=== PATIENT | male | born 1985 | race African-American/Black ===

== ENCOUNTER 2022-07-28 19:05 | Emergency (ER) | payer OTHER ==
[~2022-07-28] VITALS: Ht 193 cm; Wt 106.6 kg
[2022-07-28] MEDS ORDERED: QUET400T PO (19:10)
[2022-07-28] MEDS ORDERED: QUET200T PO (19:10)
--- NOTE | 2022-07-28 19:15 | NUR ---
PATIENT WALKED INTO ER BIB [facility] FOR C/O AUDITORY HALLUCINATION. PATIENT STATES THE VOICES AT TELLING HIM TO RUN INTO TRAFFIC. PATIENT STATES THAT HE HAS HAD SUICIDAL THOUGHTS FOR THE PAST THREE DAYS
[2022-07-28] MEDS ORDERED: OLANZAPINE 5 MG TABLET PO ONE (19:30)
[2022-07-28 19:41] LABS: HEMATOCRIT 39.2 % (36.7-47.1); MEAN CORPUSCULAR HEMOGLOBIN 29.9 uug (23.8-33.4); MEAN CORPUSCULAR VOLUME 87.1 fL (73.0-96.2); PLATELET COUNT (AUTO) 320 K/uL (152-348)
[2022-07-28] MEDS ORDERED: OLANZAPINE 5 MG TABLET ONE (19:51)
[2022-07-28 20:05] LABS: ALANINE AMINOTRANSFERASE 148 U/L (16-63); ALKALINE PHOSPHATASE 68 U/L (50-136); ASPARTATE AMINOTRANSFERASE 242 U/L (15-37); BILIRUBIN,DIRECT 0.5 mg/dL (0.0-0.2); BILIRUBIN,TOTAL 2.3 mg/dL (0.2-1.0); CARBON DIOXIDE 29 mmol/L (21-32); CHLORIDE 98 mmol/L (98-107); CREATININE 1.3 mg/dL (0.6-1.3); GLUCOSE 109 mg/dL (74-106); POTASSIUM 3.9 mmol/L (3.5-5.1); TOTAL PROTEIN, SERUM 8.1 g/dL (6.4-8.2); UREA NITROGEN, BLOOD 30 mg/dL (7-18)
[2022-07-28 20:06] LABS: ACETAMINOPHEN < 2.0 ug/mL (10-30)
[2022-07-28 20:10] LABS: ETHANOL < 3 MG/DL (0-0)
[2022-07-28 20:14] LABS: *BILIRUBIN,URIN 1+ (NEGATIVE); *CLARITY,URINE CLEAR (CLEAR); *COLOR,URINE YELLOW (YELLOW); *KETONES,URINE 2+ (NEGATIVE); *UROBILINOGEN,URINE 0.2 E.U./dl (NORMAL); LEUKOCYTE ESTERASE ,URINE NEGATIVE (NEGATIVE); NITRITE, URINE NEGATIVE (NEGATIVE); PH,URINE 5.5 (5.0-8.0); UGLUCOSE NEGATIVE (NEGATIVE)
[2022-07-28 20:16] LABS: *BLOOD, URINE TRACE (NEGATIVE)
[2022-07-28 20:20] LABS: *AMPHETAMINE, URINE POSITIVE (NEGATIVE); *CANNABINOID, URINE POSITIVE (NEGATIVE); *COCCAINE, URINE NEGATIVE (NEGATIVE); *OPIATE, URINE NEGATIVE (NEGATIVE); *PHENCYCLIDINE SCREEN,URINE NEGATIVE (NEGATIVE)
[2022-07-28 20:28] LABS: MAGNESIUM 1.9 mg/dL (1.8-2.4)
--- NOTE | 2022-07-28 20:42 | NUR ---
Lucrecia Regan manager outpatient for psych eval, did not answer.
--- NOTE | 2022-07-28 21:00 | NUR ---
Telephone call to [facility] spoke to Art and informed about this patient. Stated they can take the patient. Fax information needed. Awaiting for return call.
[2022-07-28 23:00] LABS: RBC,URINE 0-3 /HPF (0-3); SQUAMOUS EPITHELIAL CELL,UR FEW /HPF (NONE SEEN); WBC,URINE 0-3 /HPF (0-3)
[2022-07-28 23:01] LABS: BACTERIA,URINE NONE SEEN /HPF (NONE SEEN)
--- NOTE | 2022-07-29 00:54 | NUR ---
TELEPHONE CALL TO [facility], SPOKE TO MELANI AND GAVE REPORT. PATIENT WILL BE TRANSFERED TO [facility] [place] ROOM [address].
--- NOTE | 2022-07-29 01:22 | NUR ---
Patient Tranfers to outside Facility [facility]. Physician: Dr. Perez Location: #219 A Patient was picked up by [id number]. Accompained by two rubber covering machine operator via [facility]. Medical records provided.
== END 2022-07-29 01:27 ==
LOC: ER 19:06
DX: F29 Unspecified psychosis not due to a substance or known physiological condition (principal); F15.10 Other stimulant abuse, uncomplicated; Z59.00 Homelessness unspecified; F17.210 Nicotine dependence, cigarettes, uncomplicated; F20.9 Schizophrenia, unspecified; Z20.822 Contact with and (suspected) exposure to COVID-19
CPT/HCPCS: 36415; 83735; 85025; A4663; G0480